=== PATIENT | female | born 1965 | race Caucasian/White ===

== ENCOUNTER 2017-10-25 07:15 | Day surgery (SDC) | payer OTHER ==
[2017-10-25] MEDS ORDERED: SIMETHICONE 40 MG/0.6 ML ML ONE (07:31)
[2017-10-25] MEDS: MEPERIDINE HCL/PF 100 MG/ML AMP ONE ×2 (09:25→09:43)
[2017-10-25] MEDS: MIDAZOLAM HCL 5 MG/5 ML VIAL ONE ×4 (09:25→09:40)
[2017-10-25 14:14] VITALS: BP_SYST 137
== END 2017-10-25 11:25 | disposition home or self-care (01) ==
LOC: SDS 07:15 → SMU 07:15 → SDS 11:25
PROVIDERS: ATTEND Internal Medicine Gastroenterology
DX: K62.1 Rectal polyp (principal); D12.7 Benign neoplasm of rectosigmoid junction; K57.30 Diverticulosis of large intestine without perforation or abscess without bleeding; K64.8 Other hemorrhoids; E11.9 Type 2 diabetes mellitus without complications; Z79.84 Long term (current) use of oral hypoglycemic drugs
CPT/HCPCS: 45380; 45385; 82962; 88305; J2175; J2250; 45384